=== PATIENT | female | born 1930 | race Caucasian/White ===

== ENCOUNTER 2018-07-09 15:30 | Emergency (ER) | payer OTHER ==
[~2018-07-09] VITALS: Ht 152.4 cm; Wt 51.3 kg
[2018-07-09] MEDS ORDERED: PLAVIX75 MG (15:43)
[2018-07-09] MEDS ORDERED: PREDNISONE10 MG (15:43)
[2018-07-09] MEDS ORDERED: ALBUTEROL0.63 MG/3 (15:44)
== END 2018-07-10 10:13 | disposition home or self-care (01) ==
LOC: ER 15:30
DX: J11.1 Influenza due to unidentified influenza virus with other respiratory manifestations (principal); R06.02 Shortness of breath; R05 Cough; R53.81 Other malaise; R53.1 Weakness